=== PATIENT | male | born 1970 | race Caucasian/White ===

== ENCOUNTER 2018-06-29 18:04 | Emergency (ER) | payer SELFPAY ==
[2018-06-29 18:15] VITALS: BP 156/105; PULSE 86; RESP 24; TEMP 98.6; O2SAT 97
--- NOTE | 2018-06-29 18:25 | C.PDOC ---
History Of Present Illness 47 yr old male w/ hx of etoh abuse, HTN, HLD, family hx of NC / stroke in father at age 50 p/w chest pain. Pt notes chest pain started 30 minutes prior to ED arrival. He notes chest pain is L sided, pressure / discomfort like, radia ting into b/l jaw and L arm. First time occurence. He notes that he checked his BP and that it was not as high as it had been preivously: Prior to today it had been in the 180s systolic, today in the 150s. No fever, chills or night sweats. No abdominal pain. No back pain. No headache. No fall or trauma. No IVDU. Pt notes last drink was yesterday, jesús any current withdrawal symptoms. No other complaints. Time Seen by Provider: 06/29/18 18:08 Chief Complaint (Nursing): Chest Pain Past Medical History Vital Signs: Last Vital Signs Temp 98.6 F 06/29/18 18:05 Pulse 86 06/29/18 18:05 Resp 24 06/29/18 18:05 BP 156/105 H 06/29/18 18:05 Pulse Ox 97 06/29/18 18:05 - Medical History PMH: Bipolar Disorder, HTN, Hypercholesterolemia Family History: States: Unknown Family Hx - Social History Hx Alcohol Use: Yes Hx Substance Use: No - Immunization History Hx Tetanus Toxoid Vaccination: No Hx Influenza Vaccination: No Hx Pneumococcal Vaccination: No Review Of Systems Constitutional: Negative for: Fever, Chills, Sweats, Weakness, Malaise, Weight loss Eyes: Negative for: Pain, Vision Change, Conjunctivae Inflammation ENT: Negative for: Ear Pain, Ear Discharge, Nose Pain, Nose Discharge, Nose Congestion, Mouth Pain, Mouth Swelling Cardiovascular: Positive for: Chest Pain. Negative for: Palpitations, Orthopnea, Paroxysmal Noc. Dyspnea, Edema Respiratory: Negative for: Cough, Shortness of Breath, Hemoptysis, SOB with Excertion, Pleuritic Pain, Sputum Gastrointestinal: Negative for: Nausea, Vomiting, Abdominal Pain, Diarrhea, Constipation, Melena, Hematochezia Genitourinary: Negative for: Dysuria, Frequency, Incontinence, Hematuria, Penile Discharge, Scrotal Pain Musculoskeletal: Negative for: Neck Pain, Shoulder Pain, Back Pain, Hand Pain Skin: Negative for: Rash, Lesions Neurological: Negative for: Weakness, Numbness, Incoordination, Change in Speech, Confusion, Seizures, Altered Mental Status, Headache Psych: Negative for: Anxiety, Depression Physical Exam - Physical Exam Appears: Well, Non-toxic, No Acute Distress Skin: Normal Color, Warm Head: Atraumatic, Normacephalic Eye(s): bilateral: Normal Inspection, PERRL, EOMI Ear(s): Bilateral: Normal Nose: Normal, No Flaring, No Discharge Oral Mucosa: Moist Tongue: Normal Appearing, No Swelling, No Lesions Lips: Normal Appearing Teeth: Normal Dentition Gingiva: Normal Appearing Throat: Normal, No Erythema, No Exudate Neck: Normal, Normal ROM, Supple, Other (no meningeal signs) Lymphatic: Normal Exam, No Adenopathy Chest: Symmetrical, No Deformity, No Tenderness Cardiovascular: Rhythm Regular, No Edema, No Friction Rub, No Murmur, No JVD Respiratory: Normal Breath Sounds, No Decreased Breath Sounds, No Accessory Muscle Use, No Rales, No Rhonchi, No Stridor, No Wheezing Gastrointestinal/Abdominal: Normal Exam, Soft, No Tenderness Back: Normal Inspection, No CVA Tenderness, No Vertebral Tenderness Extremity: Normal ROM, No Tenderness, No Calf Tenderness Neurological/Psych: Oriented x3, Normal Speech, Normal Cognition, No Cerebellar Signs, Normal Motor Gait: Steady ED Course And Treatment - Laboratory Results Result Diagrams: 06/29/18 18:29 06/29/18 18:29 O2 Sat by Pulse Oximetry: 97 Medical Decision Making Medical Decision Makin yr old male p/w L sided chest pain, no fall or trauma. No STEMI per ekg, but given chest pain story, RF and age, will likely require continued obs for CP and serial labs. ASA ordered. No tearing back pain noted per pt. No drug use per pt. HEART Score: AGE: 1 RF: 1 story: 2 EK Trop: pending EK, NSR, no stemi Low pretest wells: PERC OUT 2040 labs, xr unremarkable pt eloped Disposition - Disposition Disposition: ELOPEMENT - ER ONLY Disposition Time: 20:41 Condition: UNKNOWN Forms: [facility] (Sinhala) - Clinical Impression Clinical Impression: Chest pain
[2018-06-29 18:32] LABS: BASO % 0.8 % (0.0-2.0); EOS # 0.1 K/uL (0.0-0.7); EOS % 2.6 % (0.0-4.0); HEMOGLOBIN 14.8 g/dL (12.0-18.0); LYMPH # 1.8 K/uL (1.0-4.3); MEAN CORPUSCULAR HGB CONC 33.7 g/dL (33.0-37.0); MEAN PLATELET VOLUME 8.2 fL (7.2-11.7); MONO # 0.7 K/uL (0.0-0.8); MONO % 15.7 % (0.0-10.0); NEUT # 1.9 K/uL (1.8-7.0); NEUT % 40.9 % (50.0-75.0); NRBC % 0.1 % (0.0-2.0); RBC 4.95 Mil/uL (4.40-5.90); RED CELL DISTRIBUTION WIDTH 14.4 % (11.5-14.5); WHITE BLOOD COUNT 4.6 K/uL (4.8-10.8)
[2018-06-29 18:48] LABS: ALB/GLOB RATIO 1.5 (1.0-2.1); ALBUMIN 4.4 g/dL (3.5-5.0); ALT/SGPT 124 U/L (21-72); AST/SGOT 84 U/L (17-59); BLOOD UREA NITROGEN 23 mg/dL (9-20); CALCIUM 9.4 mg/dl (8.6-10.4); GFR NON-AFRICAN AMERICAN > 60
--- NOTE | 2018-06-30 14:56 | RAD ---
Date of service: 06/29/2018 HISTORY: cp COMPARISON: Comparison chest 07/21/2012 TECHNIQUE: Chest PA and lateral views FINDINGS: LUNGS: No active pulmonary disease. PLEURA: No significant pleural effusion identified. No pneumothorax apparent. CARDIOVASCULAR: No aortic atherosclerotic calcification present. Normal cardiac size. No pulmonary vascular congestion. OSSEOUS STRUCTURES: No significant abnormalities. VISUALIZED UPPER ABDOMEN: Normal. OTHER FINDINGS: None. IMPRESSION: No active disease.
--- NOTE | 2018-07-02 01:33 | CARD ---
APPROVED REPORT Date of service: 06/29/2018 EKG Measurement Heart [id number] <Conclusion> Normal sinus rhythm Normal EKG
== END 2018-06-29 20:41 | disposition left against medical advice (07) ==
LOC: C.ER 18:04
DX: R07.9 Chest pain, unspecified (principal)